=== PATIENT | male | born 1965 | race African-American/Black ===

== ENCOUNTER 2021-08-18 10:36 | Inpatient (IN) | payer SELFPAY ==
[~2021-08-18] VITALS: Ht 188 cm; Wt 85.6 kg
[2021-08-18 10:36] VITALS: BP 188/113
[2021-08-18] MEDS ORDERED: PROMETHAZINE INJ 25 MG/ML (PHENERGAN) AMP ONE (10:45)
[2021-08-18 10:52] LABS: BASOPHILS # (AUTO) 0.1 10^3/uL (0.0-0.1); BASOPHILS % (AUTO) 1 % (0-10); EOSINOPHILS # (AUTO) 0.2 10^3/uL (0.0-0.3); EOSINOPHILS % (AUTO) 2 % (0-10); HEMATOCRIT 45 % (40-54); HEMOGLOBIN 14.9 g/dL (13.3-17.7); LYMPHOCYTES # (AUTO) 3.7 10^3/uL (1.0-4.0); LYMPHOCYTES % (AUTO) 50 % (12-44); MEAN CORPUSCULAR HEMOGLOBIN 31 pg (25-34); MEAN CORPUSCULAR HGB CONC 33 g/dL (32-36); MEAN CORPUSCULAR VOLUME 95 fL (80-99); MEAN PLATELET VOLUME 11.6 fL (9.0-12.2); MONOCYTES # (AUTO) 0.7 10^3/uL (0.0-1.0); MONOCYTES % (AUTO) 10 % (0-12); NEUTROPHILS # (AUTO) 2.7 10^3/uL (1.8-7.8); NEUTROPHILS % (AUTO) 37 % (42-75); PLATELET COUNT 232 10^3/uL (130-400); WHITE BLOOD COUNT 7.4 10^3/uL (4.3-11.0)
[2021-08-18] MEDS ORDERED: PROMETHAZINE INJ 25 MG/ML (PHENERGAN) AMP IVP ONE (11:00)
[2021-08-18] MEDS ORDERED: ONDANSETRON 4 MG/2 ML (SDV) Z0FRAN IVP ONE (11:00)
[2021-08-18] MEDS ORDERED: NS IV 1000 ML 1,000 ML IV SCH (11:00)
--- NOTE | 2021-08-18 11:05 | ED Neurological Problem ---
General Chief Complaint: Neuro-Stroke Like Symptoms Stated Complaint: DIZZINESS Nursing Triage Note: TO ED PER EMS WITH C/O BEING DIZZY WITH VOMITING. HAS BEEN WITHOUT MEDS FOR 2 DAYS. 4MG OF ZOFRAN GIVEN BY EMS. Source: patient, EMS Exam Limitations: no limitations History of Present Illness Date Seen by Provider: Aug 18, 2021 Time Seen by Provider: 10:36 Initial Comments "Juice" is a 55-year-old gentleman who presents to the emergency room via EMS with abrupt onset of dizziness described as both lightheadedness and vertigo that started abruptly after eating breakfast. Symptoms started after 10:00. He received Zofran 4 mg IV in route by EMS. EMS notes no ischemic changes on the EKG but he is rather hypertensive with systolic blood pressure greater than 180. He does not have any apparent focal deficits on initial screening but on further examination he appears to have some decrease in the definition of the left nasolabial fold. He is here working and lives out of town. He has been without his medications for 2 days. His medications include amlodipine, spirono lactone, Coreg, gabapentin, and dicyclomine. He admits to smoking marijuana this morning. He also drank alcohol last night. He denies any other drug use. He has nonfatiguing nystagmus at rest. He denies chest pain. Allergies and Home Medications Allergies Coded Allergies: No Known Drug Allergies (Unverified , 08/18/21) Patient Home Medication List Home Medication List Reviewed: Yes Review of Systems Review of Systems Constitutional: no symptoms reported Eyes: See HPI Ears, Nose, Mouth, Throat: no symptoms reported Respiratory: no symptoms reported Cardiovascular: see HPI Gastrointestinal: no symptoms reported Genitourinary: no symptoms reported Musculoskeletal: no symptoms reported Skin: no symptoms reported Psychiatric/Neurological: See HPI Endocrine: No Symptoms Reported Hematologic/Lymphatic: No Symptoms Reported Past Lqciucl-Snvqql-Fltlki Hx Patient Social History Tobacco Use?: Yes Substance use?: Yes Substance type: Marijuana Alcohol Use?: Yes Alcohol Frequency: Once in a while Past Medical History Surgeries: No (none reported) Respiratory: No Cardiac: Yes Hypertension Neurological: No Genitourinary: No Gastrointestinal: Yes Hiatal Hernia Musculoskeletal: No Endocrine: No HEENT: No Cancer: No Psychosocial: No Integumentary: No Physical Exam Vital Signs Vital Signs - First Documented 08/18/21 10:36 Temp 35.0 Pulse 79 Resp 18 B/P (MAP) 188/113 (138) Pulse Ox 100 O2 Delivery Room Air Capillary Refill : Height, Weight, BMI Height: '" Weight: lbs. oz. kg; 24.00 BMI Method: General Appearance: WD/WN, moderate distress HEENT: PERRL/EOMI, other (Nystagmus) Neck: normal inspection Respiratory: lungs clear, normal breath sounds, no respiratory distress Cardiovascular: regular rate, rhythm, no edema, no murmur, other (Frequent PVCs on telemetry) Gastrointestinal: normal bowel sounds, non tender, soft Extremities: normal inspection, no pedal edema Neurologic/Psychiatric: technical spec II-XII nml as tested, no motor/sensory deficits, alert, oriented x 3, other (Anxious, horizontal nystagmus noted at rest) Crainal Nerves: normal hearing, normal speech, PERRL Coordination/Gait: normal finger to nose (Normal pgio-[id number]) Motor/Sensory: no motor deficit, no sensory deficit Skin: normal color, warm/dry Progress/Results/Core Measures Results/Orders Lab Results Laboratory Tests Test 08/18/21 10:45 08/18/21 10:46 08/18/21 11:06 08/18/21 12:27 Range/Units White Blood Count 7.4 4.3-11.0 10^3/uL Red Blood Count 4.78 4.30-5.52 10^6/uL Hemoglobin 14.9 13.3-17.7 g/dL Hematocrit 45 40-54 % Mean Corpuscular Volume 95 80-99 fL Mean Corpuscular Hemoglobin 31 25-34 pg Mean Corpuscular Hemoglobin Concent 33 32-36 g/dL Red Cell Distribution Width 13.3 10.0-14.5 % Platelet Count 232 130-400 10^3/uL Mean Platelet Volume 11.6 9.0-12.2 fL Immature Granulocyte % (Auto) 1 % Neutrophils (%) (Auto) 37 L 42-75 % Lymphocytes (%) (Auto) 50 H 12-44 % Monocytes (%) (Auto) 10 0-12 % Eosinophils (%) (Auto) 2 0-10 % Basophils (%) (Auto) 1 0-10 % Neutrophils # (Auto) 2.7 1.8-7.8 10^3/uL Lymphocytes # (Auto) 3.7 1.0-4.0 10^3/uL Monocytes # (Auto) 0.7 0.0-1.0 10^3/uL Eosinophils # (Auto) 0.2 0.0-0.3 10^3/uL Basophils # (Auto) 0.1 0.0-0.1 10^3/uL Immature Granulocyte # (Auto) 0.0 0.0-0.1 10^3/uL B-Type Natriuretic Peptide 11.8 <100.0 PG/ML Glucometer 112 H 70-110 MG/DL Prothrombin Time 12.9 12.2-14.7 SEC INR Comment 0.9 0.8-1.4 Activated Partial Thromboplast Time 30 24-35 SEC D-Dimer 0.32 0.00-0.49 UG/ML Sodium Level 139 135-145 MMOL/L Potassium Level 3.9 3.6-5.0 MMOL/L Chloride Level 107 98-107 MMOL/L Carbon Dioxide Level 20 L 21-32 MMOL/L Anion Gap 12 5-14 MMOL/L Blood Urea Nitrogen 12 7-18 MG/DL Creatinine 0.89 0.60-1.30 MG/DL Estimat Glomerular Filtration Rate 107 BUN/Creatinine Ratio 13 Glucose Level 144 H 70-105 MG/DL Calcium Level 9.5 8.5-10.1 MG/DL Corrected Calcium 9.7 8.5-10.1 MG/DL Total Bilirubin 0.7 0.1-1.0 MG/DL Aspartate Amino Transf (AST/SGOT) 24 5-34 U/L Alanine Aminotransferase (ALT/SGPT) 22 0-55 U/L Alkaline Phosphatase 67 40-136 U/L Troponin I < 0.028 <0.028 NG/ML C-Reactive Protein High Sensitivity 0.08 0.00-0.50 MG/DL Total Protein 6.9 6.4-8.2 GM/DL Albumin 3.8 3.2-4.5 GM/DL Thyroid Stimulating Hormone (TSH) 1.24 0.35-4.94 UIU/ML Free Thyroxine 1.03 0.70-1.48 NG/DL Serum Alcohol < 10 <10 MG/DL Urine Color YELLOW Urine Clarity CLEAR Urine pH 8.0 5-9 Urine Specific [place] 1.015 L 1.016-1.022 Urine Protein NEGATIVE NEGATIVE Urine Glucose (UA) NEGATIVE NEGATIVE Urine Ketones NEGATIVE NEGATIVE Urine Nitrite NEGATIVE NEGATIVE Urine Bilirubin NEGATIVE NEGATIVE Urine Urobilinogen 0.2 < = 1.0 MG/DL Urine Leukocyte Esterase NEGATIVE NEGATIVE Urine RBC (Auto) NEGATIVE NEGATIVE Urine RBC NONE /HPF Urine WBC NONE /HPF Urine Crystals PRESENT H /LPF Urine Amorphous Sediment RARE SANDIP PHOSPHATE H /LPF Urine Bacteria NEGATIVE /HPF Urine Casts NONE /LPF Urine Mucus NEGATIVE /LPF Urine Culture Indicated NO Urine Opiates Screen NEGATIVE NEGATIVE Urine Oxycodone Screen NEGATIVE NEGATIVE Urine Methadone Screen NEGATIVE NEGATIVE Urine Propoxyphene Screen NEGATIVE NEGATIVE Urine Barbiturates Screen NEGATIVE NEGATIVE Ur Tricyclic Antidepressants Screen NEGATIVE NEGATIVE Urine Phencyclidine Screen NEGATIVE NEGATIVE Urine Amphetamines Screen NEGATIVE NEGATIVE Urine Methamphetamines Screen NEGATIVE NEGATIVE Urine Benzodiazepines Screen NEGATIVE NEGATIVE Urine Cocaine Screen NEGATIVE NEGATIVE Urine Cannabinoids Screen POSITIVE H NEGATIVE My Orders Orders - RINKU WILSON MD Cbc With Automated Diff (08/18/21 10:45) Protime With Inr (08/18/21 10:45) Partial Thromboplastin Time (08/18/21 10:45) Comprehensive Metabolic Panel (08/18/21 10:45) Fibrin Degradation Products (08/18/21 10:45) Troponin I (08/18/21 10:45) Ua Culture If Indicated (08/18/21 10:45) Chest 1 View, Ap/Pa Only (08/18/21 10:45) Ekg Tracing (08/18/21 10:45) Nothing By Mouth (08/18/21 Lunch) Accucheck Stat ONCE (08/18/21 10:45) Ed Iv/Invasive Line Start (08/18/21 10:45) Ed Iv/Invasive Line Start (08/18/21 10:45) Vital Signs Stroke Patient Q15M (08/18/21 10:45) Ct Head Wo-R/O Stroke (08/18/21 10:45) O2 (08/18/21 10:45) Intake & Output 06,14,22 (08/18/21 10:45) Monitor-Rhythm Ecg Trace Only (08/18/21 10:45) Dysphagia Screening Tool (08/18/21 10:45) Post Thrombolytic Adminstratio (08/18/21 10:45) Lipid Panel (08/19/21 06:00) Alcohol (08/18/21 10:45) Drug Screen Stat (Urine) (08/18/21 10:45) Promethazine Injection (Phenergan Injec (08/18/21 10:45) Ondansetron Injection (Zofran Injectio (08/18/21 11:00) Promethazine Injection (Phenergan Injec (08/18/21 11:00) Ns Iv 1000 Ml (Sodium Chloride 0.9%) (08/18/21 11:00) Lorazepam Injection (Ativan Injection) (08/18/21 11:16) Ct Angio Head/Neck (08/18/21 11:56) Iohexol Injection (Omnipaque 350 Mg/Ml 1 (08/18/21 12:00) Received Contrast (Hold Metformin- Contr (08/18/21 12:00) Ns (Ivpb) (Sodium Chloride 0.9% Ivpb Bag (08/18/21 12:00) BNP (08/18/21 12:01) Hs C Reactive Protein (08/18/21 12:01) Thyroid Stimulating Hormone (08/18/21 12:47) Free T4 (Free Thyroxine) (08/18/21 12:47) Amlodipine Tablet (Norvasc Tablet) (08/18/21 13:15) Aspirin Chewable Tablet (Baby Aspirin Ch (08/18/21 14:30) Medications Given in ED Current Medications Medications Dose Ordered Sig/Rony Route Start Time Stop Time Status Last Admin Dose Admin Amlodipine Besylate 10 mg ONCE ONCE PO 08/18/21 13:15 08/18/21 13:16 DC 08/18/21 13:11 10 MG Iohexol 100 ml ONCE ONCE IV 08/18/21 12:00 08/18/21 12:01 DC 08/18/21 12:15 75 ML Lorazepam 2 mg STK-MED ONCE .ROUTE 08/18/21 11:16 08/18/21 11:20 DC 08/18/21 11:21 0.5 MG Ondansetron HCl 4 mg ONCE ONCE IVP 08/18/21 11:00 08/18/21 11:01 DC 08/18/21 10:49 4 MG Promethazine HCl 25 mg ONCE ONCE IVP 08/18/21 11:00 08/18/21 11:01 DC 08/18/21 10:51 25 MG Sodium Chloride 100 ml ONCE ONCE IV 08/18/21 12:00 08/18/21 12:01 DC 08/18/21 12:15 80 ML Vital Signs/I&O 08/18/21 08/18/21 08/18/21 08/18/21 10:36 11:37 12:43 13:41 Temp 35.0 Pulse 79 70 66 61 Resp 18 18 18 18 B/P (MAP) 188/113 (138) 194/112 188/107 185/108 Pulse Ox 100 96 99 98 O2 Delivery Room Air Room Air Room Air Room Air 08/18/21 14:01 Pulse 64 Resp 18 B/P (MAP) 142/97 Pulse Ox 99 O2 Delivery Room Air Blood Pressure Mean: 138 Progress Progress Note #1: Time: 11:[address] was negative. Patient's vertigo was initially persistent regardless of trigger or eyes closed. He now states it is better if his eyes are closed. His NIH score was 1 for loss of the nasolabial fold crease on the left. CT angio will be obtained as long as his creatinine is satisfactory. Patient has Phenergan 25 mg IV infusing in a bag of normal saline. He also received Ativan 0.5 mg IV for his dizziness. He has still hypertensive and has had some intermittent slight bradycardia with heart rates in the upper 50s and low 60s. Progress Note #2: Time: 13:[address] angiogram was negative. Case was discussed with Dr. Menard, stroke neurologist at [facility]. Because of the left-sided facial droop there is concern for possible small subcortical lacunar infarct versus malignant hypertension. Observation in the hospital is warranted. Dr. Menard recommended a modest reduction in blood pressure of about 15 to 20% from initial blood pressure. He recommended starting his home medications initially. Hydralazine could be used for further control of his blood pressure if an IV medication is necessary for breakthrough or uncontrolled hypertension. Beta-jaime should be avoided due to his heart rate in the 50s and 60s. Patient was given amlodipine 10 mg orally. Patient's significant other, Emilie Fitzgerald, states he has been admitted to [place] and [facility] for similar issues and "cardiac issues" in the past. She does not recall any specific diagnosis regarding heart disease. Progress Note #3: Time: 14:32 Progress Note Patient has been stable and resting quietly. Blood pressure has been gradually trending downward. Last blood pressure checked before this progress note was 148 systolic. CODE STATUS was addressed and patient would like to be full code. Progress Note #4: Time: 15:06 Progress Note Patient's girlfriend is now here. Patient is calm and resting. He reports dizziness does return some when he moves. GF confirms his left face appears slightly weak compared with normal and his speech sounds "thick". Initial ECG Impression Date: Aug 18, 2021 Initial ECG Impression Time: 10:32 Initial ECG Rate: 71 Initial ECG Rhythm: Normal Sinus Initial ECG Intervals: Normal Initial ECG Impression: Normal Comment Sinus rhythm with no ST elevation or depression. PACs and PVCs noted. No abnormal intervals or axis deviation. Diagnostic Imaging Diagonstic Imaging: CT Plain Films/CT/US/NM/MRI: head Comments CT head viewed by me and report reviewed. See report below: NAME: CRISSY NOLAN [facility] REC#: [id number] PT STATUS: REG ER : 1965 PHYSICIAN: RINKU WILSON MD ADMIT DATE: 08/18/21/ER Signed Date of Exam:08/18/21 CT HEAD WO-R/O STROKE EXAMINATION: CT head without contrast. TECHNIQUE: Multiple contiguous axial images were obtained through the brain without the use of intravenous contrast. All CT scans use one or more of the following dose optimizing techniques: automated exposure control, MA and/or KvP adjustment based on patient size and exam type or iterative reconstruction. HISTORY: Neurologic deficit COMPARISON: None available. FINDINGS: The ventricles and sulci are normal. No abnormal attenuation of brain parenchyma is present. No acute intracranial hemorrhage or abnormal extra-axial fluid collections are present. No hyperdense vessel. The calvarium is intact. The mastoid air cells are clear. The visualized paranasal sinuses are clear. The orbits are normal. IMPRESSION: 1. No acute intracranial abnormality. Dictated by: Dictated on workstation # [id number] Dict: 08/18/211102 Trans: 08/18/211105 CV [id number] Interpreted by: STEVE GREEN DO Electronically signed by: STEVE GREEN DO 08/18/211105 Diagonstic Imaging: Xray Plain Films/CT/US/NM/MRI: chest Comments Chest x-ray viewed by me and report reviewed. See report below: NAME: CRISSY NOLAN [facility] REC#: [id number] PT STATUS: REG ER : 1965 PHYSICIAN: RINKU WILSON MD ADMIT DATE: 08/18/21/ER * Signed Date of Exam:08/18/21 CHEST 1 VIEW, AP/PA ONLY EXAMINATION: Chest 1 view HISTORY: Stroke COMPARISON: None available. FINDINGS: Heart size and pulmonary vasculature are normal. Bibasilar interstitial opacities are present. No pleural effusion or pneumothorax. The osseous structures are intact. IMPRESSION: 1. Mild bibasilar interstitial opacities which could represent atelectasis, pulmonary edema, or atypical infection. Dictated by: Dictated on workstation # [id number] Dict: 08/18/21 1152 Trans: 08/18/21 1157 CV [id number] Interpreted by: STEVE GREEN DO Electronically signed by: STEVE GREEN DO 08/18/21 1157 Departure Communication (Admissions) Time/Spoke to Admitting Phy: 14:10 Dr. Oliveira Impression Primary Impression: Malignant hypertension Additional Impressions: Thyroid nodule Facial droop Vertigo Nausea and vomiting Qualified Codes: R11.2 - Nausea with vomiting, unspecified Disposition: ADMITTED INPATIENT Condition: Stable Admissions Decision to Admit Reason: Admit from ER (General) Decision to Admit/Date: Aug 18, 2021 Time/Decision to Admit Time: 12:55 Departure-Patient Inst. Referrals: NO,LOCAL PHYSICIAN (PCP/Family) Primary Care Physician RINKU WILSON MD Aug 18, 2021 11:05
[2021-08-18] MEDS ORDERED: LORazepam INJ 2 MG/ML (ATIVAN) VIAL ONE (11:16)
[2021-08-18 11:26] LABS: ALBUMIN 3.8 GM/DL (3.2-4.5); CHLORIDE 107 MMOL/L (98-107); SODIUM 139 MMOL/L (135-145)
[2021-08-18 11:27] LABS: CALCIUM 9.5 MG/DL (8.5-10.1)
[2021-08-18 11:28] LABS: GLUCOSE 144 MG/DL (70-105); TOTAL PROTEIN 6.9 GM/DL (6.4-8.2)
[2021-08-18 11:29] LABS: CARBON DIOXIDE 20 MMOL/L (21-32); FIBRIN DEGRADATION PRODUCTS 0.32 UG/ML (0.00-0.49); INR 0.9 (0.8-1.4); PROTHROMBIN TIME PATIENT 12.9 SEC (12.2-14.7)
[2021-08-18 11:30] LABS: BILIRUBIN,TOTAL 0.7 MG/DL (0.1-1.0); POTASSIUM 3.9 MMOL/L (3.6-5.0)
[2021-08-18 11:32] LABS: ALKALINE PHOSPHATASE 67 U/L (40-136); CREATININE SERUM 0.89 MG/DL (0.60-1.30); GFR ESTIMATED 107
[2021-08-18 11:33] LABS: BUN/CREATININE RATIO 13
[2021-08-18 11:35] LABS: ALANINE AMINOTRANSFERASE 22 U/L (0-55)
--- NOTE | 2021-08-18 11:56 | Diagnostic Imaging Report ---
EXAMINATION: Chest 1 view HISTORY: Stroke COMPARISON: None available. FINDINGS: Heart size and pulmonary vasculature are normal. Bibasilar interstitial opacities are present. No pleural effusion or pneumothorax. The osseous structures are intact. IMPRESSION: 1. Mild bibasilar interstitial opacities which could represent atelectasis, pulmonary edema, or atypical infection. Dictated by: Dictated on workstation # [id number]
[2021-08-18] MEDS ORDERED: NS 100 ML (IVPB) BAG IV ONE (12:00)
[2021-08-18] MEDS ORDERED: IOHEXOL 350 MG/ML 100 ML (OMNIPAQUE 350) VIAL IV ONE (12:00)
[2021-08-18] MEDS ORDERED: HOLD METFORMIN - RECEIVED CONTRAST 20 ML VIAL IV SCH (12:00)
[2021-08-18 12:33] LABS: BILIRUBIN,URINE NEGATIVE (NEGATIVE); CLARITY,URINE CLEAR; COLOR,URINE YELLOW; GLUCOSE, URINE (UA) NEGATIVE (NEGATIVE); KETONES,URINE NEGATIVE (NEGATIVE); LEUKOCYTE ESTERASE ,URINE NEGATIVE (NEGATIVE); NITRITE,URINE NEGATIVE (NEGATIVE); PROTEIN,URINE NEGATIVE (NEGATIVE)
--- NOTE | 2021-08-18 12:41 | Diagnostic Imaging Report ---
PROCEDURE: CT angiography of the head and CT angiography of the neck with and without contrast. TECHNIQUE: Contiguous noncontrast images were obtained from the skull base through the vertex. After intravenous contrast administration, helical CT angiography of the neck was performed. Source data was reformatted into 3D MIP projections. Delayed post contrast acquisition was also obtained. Auto Exposure Controls were utilized during the CT exam to meet ALARA standards for radiation dose reduction. COMPARISON: Noncontrast CT head from earlier same day FINDINGS: CTA NECK: Aorta: Aortic arch is normal, with standard three vessel branching pattern. Anterior Circulation: The origin of the bilateral common carotid arteries are patent. No stenosis of the common carotid arteries in the neck. No significant stenosis of the internal carotid arteries per NASCET criteria. The cervical segments of the bilateral ICAs are patent. The proximal external carotid arteries are patent and without significant stenosis. Posterior Circulation: Origins of the bilateral vertebral arteries are normal. Left vertebral artery is dominant. The proximal extraousseous, intrasosseous, and distal extraosseous segments of the vertebral arteries are patent without dissection or stenosis. Non-vascular: No cervical lymphadenopathy. The airway is patent. No evidence of mucosal-based mass lesion in the pharynx. A 1.2 x 1.2 cm exophytic nodule arises from the posterior inferior aspect the left thyroid lobe. Salivary glands are normal. No concerning lesion in the cervical spine. CTA HEAD: Anterior Circulation: The distal internal carotid arteries are patent. The bilateral M1 and M2 segments of the middle cerebral arteries are patent and without stenosis. The bilateral M3 and M4 segments are symmetric in size and number. The anterior cerebral arteries are patent and without stenosis. No saccular aneurysm in the anterior circulation. Posterior Circulation: The bilateral intracranial segments of the vertebral arteries are patent. The basilar artery is patent and without stenosis. The posterior cerebral arteries are patent. Bilateral posterior communicating arteries are patent and without aneurysm. No saccular aneurysm in the posterior circulation. Post Contrast Head: Dural venous sinuses are patent. IMPRESSION: 1. No intracranial large vessel occlusion or aneurysm. 2. No arterial occlusion or stenosis in the major neck arteries. 3. Indeterminate left thyroid nodule. Consider thyroid ultrasound for further assessment on a nonemergent basis. Dictated by: Dictated on workstation # [id number]
[2021-08-18 12:42] LABS: AMORPHOUS SEDIMENT,UR RARE AMOR PHOSPHATE /LPF; BACTERIA,URINE NEGATIVE /HPF
[2021-08-18 12:47] LABS: AMPHETAMINE SCREEN, URINE NEGATIVE (NEGATIVE); BARBITURATE SCREEN URINE NEGATIVE (NEGATIVE); BENZODIAZEPINES SCREEN URINE NEGATIVE (NEGATIVE); CANNABINOID SCREEN, URINE POSITIVE (NEGATIVE); COCAINE SCREEN URINE NEGATIVE (NEGATIVE); METHADONE STAT NEGATIVE (NEGATIVE); METHAMPHETAMINE SCREEN URINE S NEGATIVE (NEGATIVE); OPIATE SCREEN URINE NEGATIVE (NEGATIVE); OXYCODONE STAT NEGATIVE (NEGATIVE); PROPOXYPHENE STAT NEGATIVE (NEGATIVE); TRICYCLIC ANTIDEPRESSANTS SCRE NEGATIVE (NEGATIVE)
[2021-08-18] MEDS ORDERED: amLODIPine 10 MG (NORVASC) TAB PO ONE (13:15)
[2021-08-18 13:22] LABS: FREE T4 (FREE THYROXINE) 1.03 NG/DL (0.70-1.48)
[2021-08-18] MEDS ORDERED: ASPIRIN 81 MG CHEW (CHILDREN'S ASA) PO ONE (14:30)
--- NOTE | 2021-08-18 15:02 | Tele-ICU Consult ---
History of Present Illness History of Present Illness Date Seen by Provider: Aug 18, 2021 Time Seen by Provider: 14:30 Date of Admission This virtual visit was conducted using real time audio/video. Thank you for asking us to see this patient for L facial droop and hypertensive emergency. PMH: Htn SH: smoking history :Y FH: Non-contributory ROS: but as in HPI PE: HR60 BP 188/113 RR 20 O2 sat 100% on RA HEENT: No obvious masses, adenopathy or JVD. Chest: clear to auscultation. CV: RRR S1 S2 No murmur or added sounds. Abd: Non-tender. Bowel sounds Y. : Unremarkable. Bell N. [employer]PUT[employer]ER/psychiatric: Alert and oriented, grossly intact. L facial droop Extremities: No edema. Capillary refill < 3 seconds. Skin: unremarkable. Results: urine tox + for cannabinoids. CXR w B air bronchograms. CTH and CTHA unrem. A/P: Hypertensive urgency w L facial droop. Recd amlodipine. Monitor in ICU Available chart/ vitals / labs /images reviewed. Video assessment done using teleICU camera, rest of exam as per RN. Discussed with RN TABITHA . Asked RN to reach out to eICU if any questions or concerns later. Time spent with patient/coordination of care with other health professionals (mins): 20 Allergies and Home Medications Allergies Coded Allergies: No Known Drug Allergies (Unverified , 08/18/21) Past Medical/Social/Family Hx Patient Social History Tobacco Use?: Yes Smokeless Tobacco Frequency: Current Everyday User Substance use?: Yes Substance type: Marijuana Alcohol Use?: Yes Alcohol Frequency: Rarely Current Status Advance Directives: No Communicates: Verbally Primary Language: Andorran Preferred Spoken Language: Andorran Implanted or Applied Medical D: None Review of Systems Constitutional: see HPI EENTM: see HPI Respiratory: see HPI Gastrointestinal: see HPI Genitourinary: see HPI Musculoskeletal: see HPI Skin: see HPI Psychiatric/Neurological: See HPI Sepsis Event Evaluation Height, Weight, BMI Height: '" Weight: lbs. oz. kg; 24.00 BMI Method: Exam Exam Patient acknowledged, consented, and participated in this virtual visit which was conducted using real time audio/video Vital Signs Date Time Temp Pulse Resp B/P (MAP) Pulse Ox O2 Delivery O2 Flow Rate FiO2 08/18/21 14:36 60 18 142/97 98 Room Air 08/18/21 14:01 64 18 142/97 99 Room Air 08/18/21 13:41 61 18 185/108 98 Room Air 08/18/21 12:43 66 18 188/107 99 Room Air 08/18/21 11:37 70 18 194/112 96 Room Air 08/18/21 10:36 35.0 79 18 188/113 (138) 100 Room Air Height & Weight Height: '" Weight: lbs. oz. kg; 24.00 BMI Method: General Appearance: Anxious Capillary Refill: Less Than 3 Seconds Peripheral Pulses: 1+ Dorsalis Pedis (R), 1+ Left Dors-Pedis (L) (see free text) Gastrointestinal: normal bowel sounds, non tender, soft Neurologic/Psychiatric: Facial Droop Results Lab Laboratory Tests 08/18/21 10:45 08/18/21 11:06 Assessment/Plan Assessment/Plan See free text Critical Care: Critically Ill Patient ERICK KHAN MD Aug 18, 2021 15:02
[2021-08-18] MEDS ORDERED: LABETALOL HCL 20 MG/4 ML VIAL ONE (15:53)
[2021-08-18] MEDS: LABETALOL HCL 20 MG/4 ML VIAL IV PRN (15:54)
[2021-08-18] MEDS ORDERED: ONDANSETRON 4 MG/2 ML (SDV) Z0FRAN IVP PRN (16:00)
[2021-08-18] MEDS ORDERED: AMLO-251 PO (16:00)
[2021-08-18] MEDS ORDERED: GABA-486 PO (16:00)
[2021-08-18] MEDS ORDERED: MILK OF MAGNESIA 400 MG/5 ML 30 ML UDC PO PRN (16:00)
[2021-08-18] MEDS ORDERED: CARV3.122 PO (16:00)
[2021-08-18] MEDS ORDERED: LORazepam 0.5 MG (ATIVAN) TABLET PO PRN (16:00)
[2021-08-18] MEDS ORDERED: DICY20TA10 PO (16:00)
[2021-08-18] MEDS ORDERED: SPIR25TA5 PO (16:00)
[2021-08-18] MEDS ORDERED: LORazepam INJ 2 MG/ML (ATIVAN) VIAL IVP PRN (16:00)
[2021-08-18] MEDS ORDERED: PROMETHAZINE INJ 25 MG/ML (PHENERGAN) AMP IVP PRN (19:00)
[2021-08-19 05:38] LABS: TRIGLYCERIDES 111 MG/DL (<150); VLDL CHOLESTEROL 22 MG/DL (5-40)
[2021-08-19 05:43] LABS: CHOLESTEROL 233 MG/DL (< 200); HDL CHOLESTEROL 35 MG/DL (40-60)
[2021-08-19] MEDS: LABETALOL HCL 20 MG/4 ML VIAL IV PRN (08:26)
--- NOTE | 2021-08-19 08:33 | Tele-ICU Progress Note ---
Subjective Date Seen by a Provider: Aug 19, 2021 Time Seen by a Provider: 07:55 Subjective/Events-last exam This virtual visit was conducted using real time audio/video. Thank you for asking us to see this patient for L facial droop and hypertensive emergency. PE: Sleeping peacefully. HR 60 BP 170/110 RR 20 O2 sat 100% on RA HEENT: No obvious masses, adenopathy or JVD. Chest: clear to auscultation. CV: RRR S1 S2 No murmur or added sounds. Abd: Non-tender. Bowel sounds Y. : Unremarkable. Bell N. ED PHYSICIANS/psychiatric: L mouth only droop Extremities: No edema. Capillary refill < 3 seconds. Skin: unremarkable. Results: urine tox + for cannabinoids. CXR w B air bronchograms. CTH and CTHA unrem. A/P: Hypertensive urgency w L mouth only droop. Recd Labetolol. Monitor in ICU. Resume home meds. Neuro check Q4H. Possible transfer if BP decreases with home meds given. Available chart/ vitals / labs /images reviewed. Video assessment done using teleICU camera, rest of exam as per RN. Discussed with DIONNE Barrios . Asked RN to reach out to eICU if any questions or concerns later. Time spent with patient/coordination of care with other health professionals (mins): 20 Sepsis Event Evaluation Height, Weight, BMI Height: '" Weight: lbs. oz. kg; 24.78 BMI Method: Exam Exam Patient acknowledged, consented, and participated in this virtual visit which was conducted using real time audio/video Vital Signs Date Time Temp Pulse Resp B/P (MAP) Pulse Ox O2 Delivery O2 Flow Rate FiO2 08/19/21 08:08 36.9 08/19/21 07:52 97 Room Air 08/19/21 07:00 58 08/19/21 07:00 58 16 158/103 100 Room Air 08/19/21 04:00 96 18 127/68 97 Room Air 08/19/21 03:55 97 Room Air 08/19/21 03:54 36.3 Room Air 08/19/21 01:00 71 08/19/21 00:00 78 17 119/74 97 Room Air 08/18/21 23:50 36.9 Room Air 08/18/21 23:40 97 Room Air 08/18/21 20:58 37.0 Room Air 08/18/21 20:00 96 Room Air 08/18/21 20:00 64 19 129/84 100 Room Air 08/18/21 19:00 70 08/18/21 18:00 62 19 146/105 100 Room Air 08/18/21 17:00 75 22 154/97 98 Room Air 08/18/21 16:00 65 17 152/97 99 Room Air 08/18/21 15:48 60 08/18/21 15:32 98 Room Air 08/18/21 15:18 36.3 65 16 205/105 98 Room Air 08/18/21 14:36 60 18 142/97 98 Room Air 08/18/21 14:01 64 18 142/97 99 Room Air 08/18/21 13:41 61 18 185/108 98 Room Air 08/18/21 12:43 66 18 188/107 99 Room Air 08/18/21 11:37 70 18 194/112 96 Room Air 08/18/21 10:36 35.0 79 18 188/113 (138) 100 Room Air I & O 08/19/21 07:00 Intake Total 1240 ml Output Total 1600 ml Balance -360 ml Height & Weight Height: '" Weight: lbs. oz. kg; 24.78 BMI Method: General Appearance: No Apparent Distress, Anxious Capillary Refill: Less Than 3 Seconds Peripheral Pulses: 1+ Dorsalis Pedis (R), 1+ Left Dors-Pedis (L) (see free text) Gastrointestinal: normal bowel sounds, non tender, soft Neurologic/Psychiatric: Facial Droop Results Lab Laboratory Tests 08/18/21 10:45 08/18/21 11:06 Assessment/Plan Assessment/Plan See free text. Critical Care: Critically Ill Patient ERICK KHAN MD Aug 19, 2021 08:33
[2021-08-19] MEDS ORDERED: ASPIRIN E.C. 325 MG (ECOTRIN) TABLET PO SCH (09:00)
[2021-08-19] MEDS ORDERED: amLODIPine 5 MG (NORVASC) TAB PO SCH (09:00)
[2021-08-19] MEDS ORDERED: SPIRONOLACTONE 25 MG (ALDACTONE) TAB PO SCH (09:00)
--- NOTE | 2021-08-19 10:07 | History & Physical-Hospitalist ---
History of Present Illness HPI/Chief Complaint "Juice" is a 55-year-old gentleman who presents to the emergency room via EMS with abrupt onset of dizziness described as both lightheadedness and vertigo that started abruptly after eating breakfast. Symptoms started after 10:00. He received Zofran 4 mg IV in route by EMS. EMS notes no ischemic changes on the EKG but he is rather hypertensive with systolic blood pressure greater than 180. He does not have any apparent focal deficits on initial screening but on further examination he appears to have some decrease in the definition of the left nasolabial fold. He is here working and lives out of town. He has been without his medications for 2 days. His medications include amlodipine, spironolactone, Coreg, gabapentin, and dicyclomine. He admits to smoking marijuana this morning. He also drank alcohol last night. He denies any other drug use. He has nonfatiguing nystagmus at rest. He denies chest pain. Upon my arrival when the patient had sat up to drink some water he felt like his eyes were darting felt nauseated and had to lay back down again. He has had no severe blood pressure elevations overnight. He does report several admissions for hypertensive urgency in the past and admits that as I recall it has been several weeks since he is been on blood pressure medication. He has no previous history of CVA. Other than smoking marijuana on a regular basis which she had done so yesterday morning there have been no other illicit drug use history and has been a year as I recall since he last had anything in the alcohol department with no reported past history of alcohol use disorder. He has had no previous history of CVA and is not a aware of any previous history of Benitez's palsy. Date Seen 08/19/21 Time Seen by a Provider: 11:00 Attending Physician Bob Ruiz MD PCP No,Local Physician Referring Physician Date of Admission Aug 18, 2021 at 14:24 Home Medications & Allergies Home Medications Reviewed patient Home Medication Reconciliation performed by pharmacy medication reconciliations ase certified technician and/or nursing. Patients Allergies have been reviewed. Allergies Allergies Coded Allergies No Known Drug Allergies ([id number]/23/21) Past Glzizlr-Chmvnj-Axpynf Hx Patient Social History Tobacco Use?: No Smoking Status: Never a Smoker Smokeless Tobacco Frequency: Current Everyday User Substance use?: Yes Substance type: Marijuana Alcohol Use?: Yes Alcohol Frequency: Once in a while Pt feels they are or have been: No Current Status Advance Directives: No Communicates: Verbally Primary Language: Mauritian Preferred Spoken Language: Mauritian Is interpretation needed?: No Implanted or Applied Medical D: None Past Medical History Hypertension Hiatal Hernia Review of Systems Constitutional: see HPI Physical Exam Physical Exam Vital Signs Vital Signs - First Documented 08/18/21 10:36 Temp 35.0 Pulse 79 Resp 18 B/P (MAP) 188/113 (138) Pulse Ox 100 O2 Delivery Room Air Capillary Refill : Less Than 3 Seconds Height, Weight, BMI Height: '" Weight: lbs. oz. kg; 24.78 BMI Method: General Appearance: Mild Distress Eyes: Bilateral Eye PERRL, Bilateral Eye EOMI HEENT: Other (Patient exhibits horizontal nystagmus quick component to the right bilaterally.) Respiratory: Chest Non Tender, Lungs Clear, Normal Breath Sounds, No Accessory Muscle Use, No Respiratory Distress Cardiovascular: Regular Rate, Rhythm, No Edema, No Gallop, No JVD, No Murmur, Normal Peripheral Pulses Gastrointestinal: Normal Bowel Sounds, No Organomegaly, No Pulsatile Mass, Non Tender, Soft Extremity: Normal Capillary Refill, Normal Inspection, Normal Range of Motion, Non Tender, No Calf Tenderness, No Pedal Edema Neurologic/Psychiatric: Alert, Oriented x3, No Motor/Sensory Deficits, Normal Mood/Affect, Other (Slight weakness left facial muscle compared to right otherwise cranial nerves intact.) Results Results/Procedures Labs Laboratory Tests 08/18/21 10:45 08/18/21 11:06 Patient resulted labs reviewed. Assessment/Plan Admission Diagnosis 1. Hypertensive urgency patient has been relatively easy to control on IV labetalol. We will add back some of his home medication in the form of amlodipine 10 mg daily and spironolactone 50 mg daily. Heart rate is been in the 60s and considering continued as needed IV labetalol will hold carvedilol for now. At this point favor possible viral labyrinthitis with vertigo considering the negative CTA. Cannot however rule out hypertensive encephalopathy. We will continue IV Ativan as needed for nausea and vertigo. MRI is scheduled in the morning. Discussed the importance of medication compliance especially in light of his history of admissions for hypertensive urgency's in the past. Admission Status: Inpatient Order (span 2 midnights) Reason for Inpatient Admission: See admission diagnosis BOB RUIZ MD Aug 19, 2021 10:07
== END 2021-08-19 13:28 | disposition left against medical advice (07) | DRG 305 ==
LOC: ER 10:43 → ICU 14:24
PROVIDERS: ADMIT Family Medicine; ATTEND Family Medicine
DX: I16.0 Hypertensive urgency (principal); F17.210 Nicotine dependence, cigarettes, uncomplicated; R29.810 Facial weakness; E04.1 Nontoxic single thyroid nodule; R11.2 Nausea with vomiting, unspecified
CPT/HCPCS: 36415; 70450; 70496; 70498; 71045; 80053; 80061; 80306; 80320; 81000; 82947; 83880; 84439; 84443; 84484; 85025; 85379; 85610; 85730; 86141; 93005; 93041; 93306; 94664